=== PATIENT | female | born 1990 | race Caucasian/White ===

== ENCOUNTER 2023-02-01 15:19 | Emergency (ER) | payer MEDICAID, OTHER ==
[~2023-02-01] VITALS: Ht 162.6 cm; Wt 113.4 kg
[2023-02-01 15:20] VITALS: BP_SYST 166
--- NOTE | 2023-02-01 15:20 | NUR ---
BROUGHT BACK TO BED #7 AND TRIAGED. REPORT GIVEN TO ERICA
--- NOTE | 2023-02-01 15:26 | NUR ---
Patient declines Toradol
--- NOTE | 2023-02-01 15:26 | NUR ---
Patient bib self from home. Chief Complailnt: slip and fall x1h ago. Pain 10/10 to right ankle. Patient given urine cup for HCG. Patient denies medical, surgical and RX hx. Patient a&o x4, patient stable. Patient states able to ambulate to restroom. Anti slip socks provided.
--- NOTE | 2023-02-01 15:33 | NUR ---
Dr. Hidalgo at bedside examining patient
[2023-02-01] MEDS ORDERED: KETOROLAC TROMETHAMINE 60 MG/2 ML VIAL IM ONE (15:45)
[2023-02-01] MEDS ORDERED: IBUP-1971 PO (16:20)
--- NOTE | 2023-02-01 16:44 | NUR ---
Patient given written and verbal discharge instructions and verbalizes understanding. ER MD discussed with patient the results and treatment provided. Patient in stable condition. ID arm band removed. Rx of Ibuprofen sent to pharmacy of choice. Patient educated on pain management and to follow up with PMD. Pain Scale 10/10. Patient denied pain interventions. Opportunity for questions provided and answered. Medication side effect fact sheet provided. Patient given medication teaching for ibuprofen, anti-inflammatory process, and staying aheaad of pain, patient verbalized understanding. ANNA bandage applied, patient able to ambulate. A&ox4 and stable.
== END 2023-02-01 16:44 | disposition home or self-care (01) ==
LOC: SED 15:19
DX: S93.401A Sprain of unspecified ligament of right ankle, initial encounter (principal); S90.31XA Contusion of right foot, initial encounter; Z79.899 Other long term (current) drug therapy; W19.XXXA Unspecified fall, initial encounter; Y93.89 Activity, other specified; Y92.89 Other specified places as the place of occurrence of the external cause; Y99.8 Other external cause status
CPT/HCPCS: 99284